=== PATIENT | male | born 1995 | race Caucasian/White ===

== ENCOUNTER 2020-04-20 19:30 | Emergency (ER) | payer OTHER ==
[~2020-04-20] VITALS: Ht 182.9 cm; Wt 113.4 kg
[2020-04-20] MEDS ORDERED: NEXIUM20 M1 PO (19:40)
[2020-04-20 20:14] LABS: ABSOLUTE EOSINOPHILS 0.1 thou/uL (0.0-0.7); ABSOLUTE LYMPHOCYTES 2.7 thou/uL (0.8-5.3); ABSOLUTE MONOCYTES 0.8 thou/uL (0.0-1.2); ABSOLUTE NEUTROPHILS 4.6 thou/uL (1.6-8.1); BASOPHILS 0.5 %; EOSINOPHILS 0.7 %; HEMATOCRIT 42.7 % (42.0-52.0); HEMOGLOBIN 14.9 gm/dL (14.0-18.0); LYMPHOCYTES 32.8 %; MONOCYTES 9.4 %; MPV 7.9 fl. (7.2-11.1); NUCLEATED RBCS 0 /100WBC; PLATELET COUNT* 256 thou/uL (150-400); POLYS 56.6 %; RBC 5.14 mil/uL (4.50-6.00); WBC 8.1 thou/uL (4.0-11.0)
[2020-04-20 20:31] LABS: CALCIUM 8.7 mg/dL (8.5-10.1); CREATININE 1.1 mg/dL (0.6-1.3); POTASSIUM 3.4 mmol/L (3.5-5.1)
[2020-04-20 20:34] LABS: MAGNESIUM 1.7 mg/dL (1.8-2.4); TOTAL BILIRUBIN 0.4 mg/dL (<0.1-1.0); TOTAL PROTEIN 7.2 g/dL (6.4-8.2)
[2020-04-20 21:51] VITALS: BP 135/80
--- NOTE | 2020-04-21 13:17 | EKG ---
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 04/21/20 1317 43 2044 Mor Joseph MD, FACC /EPI
== END 2020-04-20 21:52 | disposition home or self-care (01) ==
LOC: M.ERS 19:30
PROVIDERS: Emergency Medicine
DX: R00.0 Tachycardia, unspecified (principal); R42 Dizziness and giddiness